=== PATIENT | male | born 1990 | race Caucasian/White ===

== ENCOUNTER 2017-07-06 03:06 | Emergency (ER) | payer OTHER, MEDICAID ==
[~2017-07-06] VITALS: Ht 170.2 cm; Wt 81.8 kg
[2017-07-06 07:03] VITALS: BP 132/74
== END 2017-07-06 07:20 | disposition home or self-care (01) ==
LOC: EMS 03:07
DX: L02.411 Cutaneous abscess of right axilla (principal); F32.9 Major depressive disorder, single episode, unspecified; F17.210 Nicotine dependence, cigarettes, uncomplicated; Z90.49 Acquired absence of other specified parts of digestive tract
CPT/HCPCS: 99283

== ENCOUNTER 2024-02-05 22:05 | Emergency (ER) | payer MEDICAID, OTHER ==
[~2024-02-05] VITALS: Ht 172.7 cm; Wt 127.3 kg
[2024-02-05 22:16] VITALS: BP 156/89; PULSE 106; RESP 20; TEMP 98.2; O2SAT 96
[2024-02-06] MEDS ORDERED: DOXY-354 PO (00:48)
[2024-02-06] MEDS: DOXYCYCLINE HYCLATE 100 MG TABLET PO ONE (00:55)
[2024-02-06 01:36] LABS: APPEARANCE,URINE CLEAR (CLEAR); BILIRUBIN,URINE NEGATIVE (NEGATIVE); COLOR,URINE YELLOW (YELLOW); GLUCOSE, URINE (UA) NEGATIVE (NEGATIVE); KETONES,URINE NEGATIVE (NEGATIVE); LEUKOCYTE ESTERASE ,URINE NEGATIVE (NEGATIVE); NITRATE,URINE NEGATIVE (NEGATIVE); OCCULT BLOOD,URINE NEGATIVE (NEGATIVE); PH,URINE 5.5 (5.0-8.0); PROTEIN,URINE 30-70 mg/dL (NEGATIVE); UROBILINOGEN,URINE <=1.0 mg/dL (<=1.0)
== END 2024-02-06 01:48 | disposition home or self-care (01) ==
LOC: EMS 22:05
DX: L03.314 Cellulitis of groin (principal); R30.0 Dysuria; I10 Essential (primary) hypertension; F12.90 Cannabis use, unspecified, uncomplicated; F41.9 Anxiety disorder, unspecified; F17.210 Nicotine dependence, cigarettes, uncomplicated; F15.90 Other stimulant use, unspecified, uncomplicated; Z90.49 Acquired absence of other specified parts of digestive tract
CPT/HCPCS: 81003; 99283

== ENCOUNTER 2024-02-08 16:17 | Emergency (ER) | payer MEDICAID ==
[~2024-02-08] VITALS: Ht 172.7 cm; Wt 127.3 kg
[~2024-02-08 16:17] MED LIST: DOXY-354 PO
[2024-02-08 16:26] VITALS: BP 163/106; PULSE 98; RESP 18; TEMP 98; O2SAT 99
[2024-02-08] MEDS ORDERED: METF-1211 PO (16:26)
[2024-02-08] MEDS ORDERED: ARIP30TA PO (16:26)
[2024-02-08] MEDS ORDERED: METO-408 PO (16:26)
[2024-02-08] MEDS ORDERED: LISI10TA24 PO (16:26)
== END 2024-02-08 19:42 | disposition left against medical advice (07) ==
LOC: EMS 16:17
DX: L02.214 Cutaneous abscess of groin (principal); Z53.21 Procedure and treatment not carried out due to patient leaving prior to being seen by health care provider